=== PATIENT | male | born 1995 | race Caucasian/White ===

== ENCOUNTER 2022-04-13 22:03 | Emergency (ER) | payer BC, SELFPAY ==
--- NOTE | ~2022-04-13 | CT_ITS ---
EXAMINATION: CT cervical spine wo con DATE: 04/13/2022 23:19 INDICATION: Neck pain after fall TECHNIQUE: Computed tomography (CT) of the cervical spine was performed without intravenous contrast. The dose-length product was 525 mGy-cm. Automated exposure control and iterative reconstruction tech [employer] were employed. COMPARISON: None FINDINGS: There is levoscoliosis of the cervical spine. Vertebral body heights are maintained. Odonto id process is normal. No acute fracture, subluxation or dislocation. Lung apices are normal. IMPRESSION: 1. No acute fracture. Reviewed, dictated and finalized at location A. IFIED MEDICATION AIDE IMPRESSION: 1. No acute fracture.
--- NOTE | ~2022-04-13 | CT_ITS ---
EXAMINATION: CT BRAIN W/O DATE: 04/13/2022 23:19 INDICATION: Status post fall. Laceration to the back of the head. TECHNIQUE: Computed tomography (CT) of the head was performed without intravenous contrast. The dose- length product was 681.00 mGy-cm. Automated exposure control and iterative reconstruction technique w ere employed. COMPARISON: No prior studies for comparison. FINDINGS: Normal brain parenchymal volume for age. Normal wiggins-white differentiation. No acute intrac ranial hemorrhage, infarction, mass or mass effect. No ventriculomegaly or midline shift. Midline sagittal images demonstrate a normal corpus callosum, c raniovertebral junction and sella turcica. Basilar cisterns are patent. Paranasal sinuses and mastoids are pneumatized. No depressed skull fractures. There is a left posteri or parietal scalp hematoma. IMPRESSION: 1. No acute intracranial abnormality. Reviewed, dictated and finalized at location A. ER OPERATOR
[2022-04-13 22:30] VITALS: BP 124/75; PULSE 87; RESP 16; TEMP 36.4; O2SAT 98
--- NOTE | 2022-04-13 22:43 | ED.HEATRA ---
HPI - Head Injury General Chief complaint: Head Injury <Maria Del Carmen Bone PA-C - Last Filed: 04/17/22 12:32> Stated complaint: head laceration, ETOH <FARZANA Florentino Last Filed: 04/17/22 12:32> Time Seen by Provider: 04/13/22 22:26 <Maria Del Carmen Bone PA-C - Last Filed: 04/17/22 12:32> Source: patient and family <FARZANA Florentino Last Filed: 04/17/22 12:32> Mode of arrival: ambulatory <FARZANA Florentino Last Filed: 04/17/22 12:32> Limitations: intoxication <FARZANA Florentino Last Filed: 04/17/22 12:32> History of Present Illness HPI Narrative: This is a 26 year old male that presents to the ER after a head injury sustained just prior to arrival. His friend reports he has been drinking today. Reports he was running and tripped and fell and hit his head. Reports he briefly lost consciousness. His friend brought him in to be seen as he was concerned about him. Patient reports some left ankle pain and a headache. He has no other focal complaints. Denies visual changes, vomiting, or focal numbness or weakness. <Maria Del Carmen Bone PA-C - Last Filed: 04/17/22 12:32> Related Data Allergies/Adverse reactions: Allergies Allergy/AdvReac Type Severity Reaction Status Date / Time No Known Allergies Allergy Verified 04/13/22 22:25 <Maria Del Carmen Bone PA-C - Last Filed: 04/17/22 12:32> Review of Systems Review of Systems: CONSTITUTIONAL: Denies fever EYES: Denies visual changes CARDIOVASCULAR: Denies chest pain GASTROINTESTINAL: Denies vomiting MUSCULOSKELETAL: Reports joint pain and myalgia. Denies back pain NEUROLOGIC: Reports headache. Denies numbness, or weakness. <FARZANA Florentino Last Filed: 04/17/22 12:32> All systems reviewed & are unremarkable except as noted in HPI and below <Maria Del Carmen Bone PA-C - Last Filed: 04/17/22 12:32> [facility] Past Medical History Medical History: Medical History (Updated 04/15/22 @ 00:00 by Hannah Adorno) No active medical problems <Maria Del Carmen Bone PA-C - Last Filed: 04/17/22 12:32> Social History Social History: Social History (Updated 04/13/22 @ 22:48 by Maria Del Carmen Bone PA-C) Alcohol intake: current <Maria Del Carmen Bone PA-C - Last Filed: 04/17/22 12:32> Exam Narrative: GENERAL: Well-appearing, well-nourished, and in no acute distress. HEAD: Normocephalic. 3cm linear laceration into subcutaneous tissue to the posterior scalp EYES: PERRLA and EOMI. ENT: Nares clear, no rhinorrhea or epistaxis. Mucous membranes moist. Oropharynx without tonsillar hypertrophy exudate or other lesions. Bilateral TMs pearly wiggins non-bulging NECK: Supple. No adenopathy or masses. No midline cervical spine tenderness CHEST: Clear to auscultation. No respiratory distress. No wheezes rales or rhonchi HEART: Regular rate and rhythm. No murmur heard. Normal peripheral pulses. BACK: No midline thoracic or lumbar spine tenderness EXTREMITIES: Normal range of motion. No edema or obvious deformity. Strength equal in bilateral upper and lower extremities (5/5) SKIN: Warm, dry, no rash. NEURO: No focal deficits. Alert and oriented x3. Cranial nerves II through XII grossly intact PSYCH: Normal mood and affect <Maria Del Carmen Bone PA-C - Last Filed: 04/17/22 12:32> Course EKG MANAGER/PA Physician Supervision For this encounter, I have reviewed the mid-level provider documentation, treatment plan and medical decision making. I have had [id number] time with the patient. Physical exam reveals a 26-year-old male with intoxicated laceration back scalp. Due to his level intoxication CT scans were his head and C-spine which were negative for acute injury. Laceration was repaired using pily. Keep components of the procedure were performed under my supervision. Tdap was updated. Patient was monitored until clinically sober and discharged. All questions answered. Patient in agreement w/ disposition. <Parmjit Santillan MD - Last Filed
[2022-04-14] MEDS: TETANUS,DIPHTHERIA,AC PERTUSSIS ADULT (0.5 ML) BOOSTRIX IM (01:11)
== END 2022-04-14 01:19 | disposition home or self-care (01) ==
PROVIDERS: Emergency Provider Physician Assistant
DX: S01.01XA Laceration without foreign body of scalp, initial encounter (principal); Z23 Encounter for immunization; Y93.02 Activity, running; W01.0XXA Fall on same level from slipping, tripping and stumbling without subsequent striking against object, initial encounter
CPT/HCPCS: 12002; 70450; 72125; 90471; 90715; 99284